=== PATIENT | male | born 1965 | race Caucasian/White ===

== ENCOUNTER 2020-05-28 16:19 | Emergency (ER) | payer BC, SELFPAY ==
--- NOTE | ~2020-05-28 | XR_ITS ---
[XR ribs LT 2V w CXR 2V ] INDICATION: Left rib pain TECHNIQUE: Frontal projection of the upper left ribs, frontal projection of the lower left ribs, obli que projection of all the left ribs, frontal inspiratory chest x-ray for interpretation. FINDINGS: There is a nondisplaced anterior left eighth rib fracture. Visualized lung parenchyma is u nremarkable. No other fractures identified. No significant pleural or pericardial effusion. Lungs are clear. The lungs are hyperinflated which is consistent with, but not diagnostic of chronic obstructi ve pulmonary disease. There is a midshaft thoracic wedge compression deformity which appears chronic. IMPRESSION: 1: Acute nondisplaced left eighth rib fracture anteriorly. Reviewed, dictated and finalized at location A.
[2020-05-28 17:17] VITALS: BP 111/62; PULSE 98; RESP 18; TEMP 36.9; O2SAT 100
[2020-05-28 18:53] LABS: Add Urine Microscopic? YES; Appearance Urine Clear (Clear); Bilirubin Urine Negative (Negative); Blood Urine Negative (Negative); Color Urine Yellow (Yellow); Glucose Urine UA 1+ mg/dL (Negative); Ketones Urine Negative (Negative); Leukocyte Esterase Ur Negative LEU/UL (Negative); Mucus Urine Heavy /lpf; Nitrate Urine Negative (Negative); Protein Urine Negative (Negative); Specific Grav Ur 1.023 (1.001-1.035); Squamous Epithelial Cell Urine Rare /hpf (Few); Urobilinogen Urine Negative mg/dL (<2.0)
--- NOTE | 2020-05-28 18:59 | ED.ABDPAIN ---
HPI - Abdominal Pain General Chief Complaint: Fall <KYE Burger Last Filed: 05/28/20 19:43> Stated Complaint: rib pain <KYE Burger Last Filed: 05/28/20 19:43> Time Seen by Provider: 05/28/20 17:14 <KYE Burger Last Filed: 05/28/20 19:43> Source: patient <KYE Burger Last Filed: 05/28/20 19:43> Mode of arrival: ambulatory <KYE Burger Last Filed: 05/28/20 19:43> Limitations: no limitations <KYE Burger Last Filed: 05/28/20 19:43> History of Present Illness HPI narrative: Patient is a 54-year-old male who presents with left rib pain having fallen yesterday was seen at outside hospital diagnosed with what sounds like rib fracture sent home with pain medication was seen by primary care today and referred back to the emergency department for evaluation of possible hematuria. Patient notes he has continued to have left lateral rib pain but denies other injuries or complaints took tramadol with minimal improvement. Patient denies other injuries or complaints <KYE Burger Last Filed: 05/28/20 19:43> Related Data Home Medications: Home Medications Medication Instructions Recorded Confirmed albuterol sulfate INHALATION 05/28/20 cetirizine mg 05/28/20 fluticasone propion-salmeterol INHALATION 05/28/20 [Nadia Inhub] hydrochlorothiazide 05/28/20 losartan 05/28/20 montelukast mg 05/28/20 sertraline mg 05/28/20 tramadol mg 05/28/20 <KYE Burger Last Filed: 05/28/20 19:43> Allergies/Adverse Reactions: Allergies Allergy/AdvReac Type Severity Reaction Status Date / Time No Known Allergies Allergy Mild Verified 05/28/20 17:20 <KYE Burger Last Filed: 05/28/20 19:43> Review of Systems Review of Systems: All systems reviewed & are unremarkable except as noted in HPI and below <KYE Burger Last Filed: 05/28/20 19:43> PMFSH Past Medical History Medical History: Medical History (Updated 05/28/20 @ 19:39 by Des Orellana PA-C) Emphysema/COPD <Des Orellana PA-C - Last Filed: 05/28/20 19:43> Surgical History Surgical History: Surgical History History of tonsillectomy <Des Orellana PA-C - Last Filed: 05/28/20 19:43> Social History Social History: Social History Tobacco type: e-cigarettes/vaping Gender identity (if verbalized by the patient): Male <Des Orellana PA-C - Last Filed: 05/28/20 19:43> Exam Narrative: Exam Narrative: GENERAL: Well-appearing, well-nourished, and in no acute distress. HEAD: Normocephalic, atraumatic. EYES: PERRLA and EOMI. ENT: Nares clear, no rhinorrhea or epistaxis. Mucous membranes moist. NECK: Supple. No adenopathy or masses. CHEST: Clear to auscultation. No respiratory distress. No wheezes rales or rhonchi. Tenderness over left lateral ribs no deformity bruising noted HEART: Regular rate and rhythm. No murmur heard. Normal peripheral pulses. ABDOMEN: Soft nontender no rebound or guarding EXTREMITIES: Normal range of motion. No edema. SKIN: Warm, dry, no rash. NEURO: No focal deficits. Alert and oriented x3. Cranial nerves II through XII grossly intact PSYCH: Normal mood and affect. <Des Orellana PA-C - Last Filed: 05/28/20 19:43> Course Course Emergency Course: Patient in the room aware of case findings treatment plan and diagnosis agreeing to follow-up as directed or to return if symptoms worsen or concerns. Patient will be referred back to primary care is felt appropriate for outpatient reevaluation is afebrile nontoxic-appearing no distress patient. Patient felt appropriate for outpatient reevaluation <Des Orellana PA-C - Last Filed: 05/28/20 19:43> Vital Signs Vital signs: Vital Signs Temperature 9
[2020-05-28 19:53] VITALS: BP 132/70; PULSE 70; RESP 18; O2SAT 97
== END 2020-05-28 19:54 | disposition home or self-care (01) ==
PROVIDERS: Emergency Medicine Emergency Medical Services; Emergency Provider General Practice; PCP Emergency Medicine
DX: S22.32XA Fracture of one rib, left side, initial encounter for closed fracture (principal); J43.9 Emphysema, unspecified; X58.XXXA Exposure to other specified factors, initial encounter
CPT/HCPCS: 71046; 71100; 81001; 99283

== ENCOUNTER 2020-08-23 07:59 | Outpatient (CLI) | payer BC, SELFPAY ==
--- NOTE | 2020-08-29 09:28 | WPDPFTINT ---
PFT Interpretation PFT Interpretation: This PFT met all criteria for ATS standards and reproducibility FEV/FVC post bronchodilator 50% FEV1 64% or 1.99 liters FVC 92% or 3.94 liters TLC 130% RV 189% RV/TLC 51% DLCO 67% when adjusted for alveolar volume but not adjusted for hemoglobin Flow volume loops showed significant expiratory coving. Impression: Moderate airflow obstruction with hyperinflation, air trapping and mildly reduced diffusion capacity. This pattern is suggestive of COPD. Clinical correlation is advised.
--- NOTE | 2020-08-29 09:31 | WPDSIXMINUTE ---
Six Minute Walk Six Minute Walk: The patients O2 sats started at 98% and dropped as low as 95% Total walk distance 396.24 meters conclusion: This patient does not qualify for home oxygen use.
== END 2020-08-23 08:00 | disposition home or self-care (01) ==
LOC: ANHPFT 08:00
PROVIDERS: PCP Emergency Medicine; Visit Provider Nurse Practitioner
DX: J44.9 Chronic obstructive pulmonary disease, unspecified (principal); R94.2 Abnormal results of pulmonary function studies
CPT/HCPCS: 94060; 94618; 94726; 94729

== ENCOUNTER 2020-10-31 13:26 | Outpatient (CLI) | payer BC, SELFPAY ==
--- NOTE | ~2020-10-31 | CT_ITS ---
EXAMINATION: CT lung screening DATE: 10/31/2020 13:50 INDICATION: Personal history of tobacco dependence, current smoker with 30 pack year history TECHNIQUE: Computed tomography (CT) of the chest was performed without intravenous contrast. The dose -length product (DLP) was 69.32 mGy-cm. Automated exposure control and iterative reconstruction techn [employer] were employed. COMPARISON: None FINDINGS: There is moderate emphysema. No suspicious pulmonary nodules are identified. The lungs are free of acute opacities. There is no pleural effusion or pneumothorax. Coronary artery stents are not ed. No pathologically enlarged thoracic lymph nodes are identified. The heart size is normal. Healing age-indeterminate left-sided rib fractures are noted. There are also age-indeterminate compression f ractures of the T3, T4, T9, and T12 vertebral bodies. IMPRESSION: 1. Lung-RADS category 1: Negative. Continue annual screening with noncontrast low-dose chest CT in 12 months. Reviewed, dictated and finalized at location A. GNER IMPRESSION: 1. Lung-RADS category 1: Negative. Continue annual screening with noncontrast l ow-dose chest CT in 12 months.
== END 2020-10-31 13:27 | disposition home or self-care (01) ==
LOC: ANHIMG 13:30
PROVIDERS: PCP Emergency Medicine; Visit Provider Emergency Medicine
DX: Z12.2 Encounter for screening for malignant neoplasm of respiratory organs (principal); Z87.891 Personal history of nicotine dependence
CPT/HCPCS: G0297

== ENCOUNTER 2020-12-17 07:55 | Outpatient (CLI) | payer BC, SELFPAY ==
--- NOTE | ~2020-12-17 | XR_ITS ---
XR facial bones min 3V DATE: 12/17/2020 08:10 INDICATION: Left temporomandibular joint pain. No injury. TECHNIQUE: 4 views COMPARISON: None FINDINGS: The frontozygomatic sutures, orbital rims and remainder of the facial bones appear intact. Paranasal sinuses and mastoid air cells are normally developed and aerated. Alignment appears intact at the temporomandibular joints. Nasal bone is intact. IMPRESSION: Negative Reviewed, dictated and finalized at location A. [employer] IMPRESSION: Negative
== END 2020-12-17 07:56 | disposition home or self-care (01) ==
LOC: ANHIMG 07:58
PROVIDERS: PCP Emergency Medicine; Visit Provider Emergency Medicine
DX: M26.622 Arthralgia of left temporomandibular joint (principal)
CPT/HCPCS: 70150